=== PATIENT | female | born 1960 | race Caucasian/White ===

== ENCOUNTER 2018-02-25 11:27 | Outpatient (CLI) | payer MEDICARE, OTHER ==
--- NOTE | 2018-02-28 11:19 | Mammography Report ---
Reason: SCREEN w JESUSITA Procedure Date: 02/25/2018 Accession Number: [id number] / [id number] Procedure: CAROLYN - Screening Mammo w/Jesusita CPT Code: FULL RESULT: EXAM: Screening Mammo w/Jesusita DATE: 02/25/2018 12:24 PM CLINICAL HISTORY: 58-year-old female with history of early menses and late childbearing and family history of breast cancer in the mother at age 56. TECHNIQUE: Bilateral CC and MLO views were obtained. COMPARISON: 09/02/2015, 12/25/2013, 09/08/2012. FINDINGS: The breasts demonstrate scattered fibroglandular densities bilaterally. Coarse typically benign bilateral calcifications are seen. No suspicious masses, clustered microcalcifications, or regions of architectural distortion are identified. IMPRESSION: Benign findings RECOMMENDATION: Routine annual screening unless otherwise clinically indicated. BIRADS CATEGORY 2: Benign findings STANDARD QUALIFYING STATEMENTS: 1. This examination was not reviewed with the aid of Computer-Aided Detection (CAD). 2. A negative or benign imaging report should not delay biopsy if clinically suspicious findings are present. Consider surgical consultation if warrented. More than 5% of cancers are not identified by imaging. 3. Dense breasts may obscure an underlying neoplasm. 4. This examination was reviewed with the aid of 3D breast imaging (tomosynthesis).
== END 2018-02-25 11:28 | disposition home or self-care (01) ==
LOC: DI 11:27
PROVIDERS: ATTEND Registered Nurse
DX: Z12.31 Encounter for screening mammogram for malignant neoplasm of breast (principal); Z80.3 Family history of malignant neoplasm of breast
CPT/HCPCS: 77063; 77067

== ENCOUNTER 2018-07-22 14:02 | Outpatient (CLI) | payer MEDICARE, OTHER ==
--- NOTE | 2018-07-22 15:49 | XRAY Report ---
Reason: SACROCOCCYGEAL DISORDERS, NOT ELSEWHERE CLASSIFIED Procedure Date: 07/22/2018 Accession Number: [id number] / [id number] Procedure: XR - Sacrum/Coccyx CPT Code: FULL RESULT: EXAM: SACRUM AND COCCYX RADIOGRAPHY EXAM DATE: 07/22/2018 02:21 PM. HISTORY: Sacrococcygeal pain after ground-level fall yesterday. COMPARISONS: None. TECHNIQUE: 2 views. FINDINGS: Alignment: Normal. The sacrum and coccyx are normally aligned. Bones: Normal. No fracture or bone lesion. Joints: Normal. The sacroiliac joints and visualized hips are within normal limits. Soft Tissues: Unremarkable. IMPRESSION: Normal sacrum and coccyx radiography. RADIA
== END 2018-07-22 14:03 | disposition home or self-care (01) ==
LOC: DI 14:02
PROVIDERS: ATTEND Registered Nurse
DX: M53.3 Sacrococcygeal disorders, not elsewhere classified (principal)
CPT/HCPCS: 72220

== ENCOUNTER 2019-11-06 14:05 | Outpatient (CLI) | payer MEDICARE, OTHER ==
--- NOTE | 2019-11-07 11:49 | Mammography Report ---
BILATERAL DIGITAL SCREENING MAMMOGRAM 3D/2D: 11/06/2019 CLINICAL: Routine screening. Comparison is made to exams dated: 02/25/2018 mammogram, 09/02/2015 mammogram, and 12/25/2013 mammogram - [facility]. The tissue of both breasts is predominantly fatty. No significant masses, calcifications, or other findings are seen in either breast. There has been no significant interval change. IMPRESSION: NEGATIVE There is no mammographic evidence of malignancy. A 1 year screening mammogram is recommended. This exam was interpreted at Station ID: [id number]. NOTE: For mammograms, a report in lay terms will be sent to the patient. Approximately 15% of breast malignancies will not be visualized mammographically. In the management of a palpable breast mass, a negative mammogram must not discourage biopsy of a clinically suspicious lesion. Electronically Signed By: Solis Robert M.D., jr/lala:11/06/2019 16:30:16 ACR BI-RADS Category 1: Negative 3341F PARENCHYMAL PATTERN: (F) - The breast(s) demonstrate(s) diffuse fatty replacement. BI-RADS CATEGORY: (1) - 1 RECOMMENDATION: (ANNUAL) - Recommend routine annual screening mammography. [id number] 1 year screening LATERALITY: (B)
== END 2019-11-06 14:06 | disposition home or self-care (01) ==
LOC: DI 14:05
PROVIDERS: ATTEND Registered Nurse
DX: Z12.31 Encounter for screening mammogram for malignant neoplasm of breast (principal)
CPT/HCPCS: 77063; 77067

== ENCOUNTER 2020-01-03 17:13 | Outpatient (CLI) | payer MEDICARE, OTHER | END 2020-01-03 17:14 | disposition critical access hospital (66) | LOC: EMS 17:13 | PROVIDERS: ATTEND Surgery | DX: R42 Dizziness and giddiness (principal) | CPT/HCPCS: A0425; A0427 ==

== ENCOUNTER 2020-07-29 12:40 | Outpatient (CLI) | payer MEDICARE, OTHER | END 2020-07-29 12:41 | disposition home or self-care (01) | LOC: NS 12:40 | PROVIDERS: ATTEND Family Medicine | DX: Z71.3 Dietary counseling and surveillance (principal); E11.9 Type 2 diabetes mellitus without complications | CPT/HCPCS: 97802; 97803 ==

== ENCOUNTER 2020-10-17 09:54 | Outpatient (CLI) | payer MEDICARE, OTHER | END 2020-10-17 09:55 | disposition home or self-care (01) | LOC: NS 09:54 | PROVIDERS: ATTEND Registered Nurse | DX: Z71.3 Dietary counseling and surveillance (principal); E11.9 Type 2 diabetes mellitus without complications | CPT/HCPCS: 97803 ==

== ENCOUNTER 2020-11-10 12:45 | Outpatient (CLI) | payer MEDICARE, OTHER ==
--- NOTE | 2020-11-11 11:57 | Mammography Report ---
BILATERAL DIGITAL SCREENING MAMMOGRAM 3D/2D: 11/10/2020 CLINICAL: Family history of breast cancer. Comparison is made to exams dated: 11/06/2019 mammogram, 02/25/2018 mammogram, 09/02/2015 mammogram, 12/02 mammogram, and 09/08/2012 mammogram - [facility]. There are scattered fibrogl andular elements in both breasts. There are benign calcifications in the left breast. No significant masses, calcifications, or other findings are seen in either breast. There has been no significant interval change. IMPRESSION: BENIGN There is no mammographic evidence of malignancy. A 1 year screening mammogram is recommended. This exam was interpreted at Station ID: [id number]. NOTE: For mammograms, a report in lay terms will be sent to the patient. Approximately 15% of breast malignancies will not be visualized mammographically. In the management of a palpable breast mass, a negative mammogram must not discourage biopsy of a clinically suspicious lesion. Electronically Signed By: Rex Dale M.D. ddp/penrad:11/11/2020 09:29:51 ACR BI-RADS Category 2: Benign Finding(s) 3342F PARENCHYMAL PATTERN: (A) - The breast(s) demonstrate(s) scattered fibroglandular densities. BI-RADS CATEGORY: (2) - 2 RECOMMENDATION: (ANNUAL) - Recommend routine annual screening mammography. [id number] 1 year screening LATERALITY: (B)
== END 2020-11-10 12:46 | disposition home or self-care (01) ==
LOC: DI.S 12:45
PROVIDERS: ATTEND Registered Nurse
DX: Z12.31 Encounter for screening mammogram for malignant neoplasm of breast (principal); Z80.3 Family history of malignant neoplasm of breast

== ENCOUNTER 2020-11-21 07:44 | Outpatient (CLI) | payer MEDICARE, OTHER ==
[2020-11-21 20:48] LABS: ESTIMATED AVERAGE GLUCOSE 123 mg/dL (70-100); HEMOGLOBIN A1c% 5.9 % (4.27-6.07)
== END 2020-11-21 07:45 | disposition home or self-care (01) ==
LOC: LAB.S 07:44
PROVIDERS: ATTEND Registered Nurse
DX: E11.9 Type 2 diabetes mellitus without complications (principal)
CPT/HCPCS: 36415; 83036

== ENCOUNTER 2020-12-15 14:34 | Emergency (ER) | payer MEDICARE, OTHER ==
[2020-12-15] MEDS ORDERED: KETOROLAC 60 MG/2 ML VIAL IM STA (15:24)
--- NOTE | 2020-12-15 15:47 | XRAY Report ---
PROCEDURE: Humerus LT INDICATIONS: fall mid shaft TECHNIQUE: 2 views of the humerus were acquired. COMPARISON: None FINDINGS: Bones: There is a moderately displaced fracture through the midshaft of the left humerus, with commin uted line seen proximally. Postoperative changes are seen, with left humeral head anchors. Underlying age-appropriate degenerative changes can be seen. On these images, no sherman rib fractures can be seen. Soft tissues: No suspicious soft tissue calcifications. IMPRESSION: Comminuted fracture of the left humeral mid shaft. Reviewed by: Yung Rodriguez MD on 12/15/2020 2:45 PM [facility] Approved by: Yung Rodriguez MD on 12/15/2020 2:45 PM [facility]AS Station ID: [id number]
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
[2020-12-15 16:41] VITALS: BP 117/73
== END 2020-12-15 16:41 | disposition home or self-care (01) ==
LOC: ED 14:34
DX: S42.352A Displaced comminuted fracture of shaft of humerus, left arm, initial encounter for closed fracture (principal); W18.30XA Fall on same level, unspecified, initial encounter; Y93.55 Activity, bike riding; Y92.830 Public park as the place of occurrence of the external cause; Z87.891 Personal history of nicotine dependence; E11.9 Type 2 diabetes mellitus without complications; Z79.84 Long term (current) use of oral hypoglycemic drugs
CPT/HCPCS: 29105; 99284

== ENCOUNTER 2020-12-26 08:00 | Outpatient (CLI) | payer MEDICARE, OTHER ==
--- NOTE | 2020-12-27 11:41 | XRAY Report ---
PROCEDURE: Humerus LT INDICATIONS: DISPLACED OBLIQUE FX OF SHAFT OF L HUMERUS TECHNIQUE: 3 views of the humerus were acquired. COMPARISON: 12/15/2020 plain film imaging FINDINGS: Bones: No previously unidentified fractures or dislocations. No suspicious bony lesions. Soft tissues: No suspicious soft tissue calcifications. IMPRESSION: No definite osseous union across the fracture planes is yet established. No significant change in mil d malalignment at the fracture. Tendon transfer yohana again noted at the humeral head area. These d o not appear dislodged. Presumably healing. Reviewed by: West Peterson MD on 12/27/2020 11:40 AM PDT Approved by: West Peterson MD on 12/27/2020 11:40 AM PDT Station ID: [id number]
== END 2020-12-26 23:59 | disposition home or self-care (01) ==
LOC: DI.N 08:00
PROVIDERS: ATTEND Orthopaedic Surgery
DX: S42.332D Displaced oblique fracture of shaft of humerus, left arm, subsequent encounter for fracture with routine healing (principal)

== ENCOUNTER 2021-01-28 13:30 | Outpatient (CLI) | payer MEDICARE, OTHER ==
--- NOTE | 2021-01-28 18:52 | XRAY Report ---
PROCEDURE: Humerus LT INDICATIONS: DISPLACED OBLIQUE FX OF SHAFT OF L HUMERUS TECHNIQUE: 2 views of the humerus were acquired. COMPARISON: 12/26/2020, 12/15/2020. FINDINGS: Bones: There is interval further healing at proximal to mid humeral shaft fracture site with surround ing callus formation. Humeral alignment is near anatomic. No new fracture or dislocation. No suspicio us bony lesions. Soft tissues: No suspicious soft tissue calcifications. IMPRESSION: Interval further healing at left humeral shaft fracture site with stable and near-anatomic humeral al ignment. Reviewed by: Wesly Ponce MD on 01/28/2021 6:51 PM PDT Approved by: Wesly Ponce MD on 01/28/2021 6:51 PM PDT Station ID: [id number]
== END 2021-01-28 23:59 | disposition home or self-care (01) ==
LOC: DI.N 13:30
PROVIDERS: ATTEND Orthopaedic Surgery
DX: S42.332D Displaced oblique fracture of shaft of humerus, left arm, subsequent encounter for fracture with routine healing (principal)

== ENCOUNTER 2021-03-11 07:33 | Outpatient (CLI) | payer MEDICARE, OTHER ==
--- NOTE | 2021-03-12 10:56 | XRAY Report ---
PROCEDURE: Humerus LT INDICATIONS: DISPLACED OBLIQUE FX OF SHAFT OF L HUMERUS TECHNIQUE: 2 views of the humerus were acquired. COMPARISON: X-ray humerus 01/28/2021 FINDINGS: Bones: There is stable alignment with continued interval bridging sclerosis consistent with healing. Fracture lucencies remain present within the mid humerus. No suspicious bony lesions. Soft tissues: No suspicious soft tissue calcifications. IMPRESSION: Continued interval healing with stable alignment of mid humeral fracture. Reviewed by: Kat Jacobson MD on 03/12/2021 10:55 AM [facility] Approved by: Kat Jacobson MD on 03/12/2021 10:55 AM [facility] Station ID: [id number]
== END 2021-03-11 23:59 | disposition home or self-care (01) ==
LOC: DI.N 07:33
PROVIDERS: ATTEND Orthopaedic Surgery
DX: S42.332D Displaced oblique fracture of shaft of humerus, left arm, subsequent encounter for fracture with routine healing (principal)

== ENCOUNTER 2021-03-11 11:01 | Outpatient (CLI) | payer MEDICARE, OTHER | END 2021-03-11 11:02 | disposition home or self-care (01) | LOC: DI.N 11:01 | PROVIDERS: ATTEND Orthopaedic Surgery | DX: Z53.9 Procedure and treatment not carried out, unspecified reason (principal) ==

== ENCOUNTER 2021-09-11 07:58 | Outpatient (CLI) | payer MEDICARE, OTHER ==
[2021-09-11 14:37] LABS: ESTIMATED AVERAGE GLUCOSE 128 mg/dL (70-100); HEMOGLOBIN A1c% 6.1 % (4.27-6.07)
== END 2021-09-11 07:59 | disposition home or self-care (01) ==
LOC: LAB.S 07:58
PROVIDERS: ATTEND Registered Nurse
DX: E11.9 Type 2 diabetes mellitus without complications (principal)
CPT/HCPCS: 36415; 83036

== ENCOUNTER 2021-12-02 07:46 | Outpatient (CLI) | payer MEDICARE, OTHER ==
--- NOTE | 2021-12-03 09:51 | Mammography Report ---
BILATERAL DIGITAL SCREENING MAMMOGRAM 3D/2D: 12/02/2021 CLINICAL: Routine screening. Family history of breast cancer. Comparison is made to exams dated: 11/10/2020 mammogram, 11/06/2019 mammogram, 11/06/2019 mammogram, and 02/25/2018 mammogram - [facility]. The tissue of both breasts is predominantly fat ty. There are benign calcifications in the left breast. No significant masses, calcifications, or other findings are seen in either breast. There has been no significant interval change. IMPRESSION: BENIGN There is no mammographic evidence of malignancy. A 1 year screening mammogram is recommended. Based on the Tyrer Cuzick model (a risk assessment model) the patients lifetime risk is 10.0% and he r 10 year risk is 4.4%. According to the ACR, ACS, and NCCN guidelines, an annual breast MRI exam nazanin ng with mammogram is recommended if the patients lifetime risk is 20% or greater. This exam was interpreted at Station ID: [id number]. NOTE: For mammograms, a report in lay terms will be sent to the patient. Approximately 15% of breast malignancies will not be visualized mammographically. In the management of a palpable breast mass, a negative mammogram must not discourage biopsy of a clinically suspicious lesion. Electronically Signed By: Linda lara/lala:12/02/2021 13:18:56 ACR BI-RADS Category 2: Benign Finding(s) 3342F PARENCHYMAL PATTERN: (F) - The breast(s) demonstrate(s) diffuse fatty replacement. BI-RADS CATEGORY: (2) - 2 RECOMMENDATION: (ANNUAL) - Recommend routine annual screening mammography. [id number] 1 year screening LATERALITY: (B)
== END 2021-12-02 07:47 | disposition home or self-care (01) ==
LOC: DI.S 07:46
PROVIDERS: ATTEND Registered Nurse
DX: Z12.31 Encounter for screening mammogram for malignant neoplasm of breast (principal); Z80.3 Family history of malignant neoplasm of breast

== ENCOUNTER 2023-04-06 07:50 | Outpatient (CLI) | payer MEDICARE, OTHER ==
--- NOTE | 2023-04-07 09:38 | Mammography Report ---
BILATERAL DIGITAL SCREENING MAMMOGRAM 3D/2D: 04/06/2023 CLINICAL: Routine screening. Family history of breast cancer. Comparison is made to exams dated: 12/02/2021 mammogram, 11/10/2020 mammogram, and 11/06/2019 mammogram - [facility]. There are scattered areas of fibroglandular density in both breasts (category b / 25%-50% glandular t issue). There are benign calcifications in the left breast. No significant masses, calcifications, or other findings are seen in either breast. There has been no significant interval change. IMPRESSION: BENIGN There is no mammographic evidence of malignancy. A 1 year screening mammogram is recommended. Based on the Tyrer Cuzick model (a risk assessment model) the patients lifetime risk is 14.0% and he r 10 year risk is 6.6%. According to the ACR, ACS, and NCCN guidelines, an annual breast MRI exam nazanin ng with mammogram is recommended if the patients lifetime risk is 20% or greater. This exam was interpreted at Station ID: [id number]. NOTE: For mammograms, a report in lay terms will be sent to the patient. Approximately 15% of breast malignancies will not be visualized mammographically. In the management of a palpable breast mass, a negative mammogram must not discourage biopsy of a clinically suspicious lesion. Electronically Signed By: Mayelin franco/lala:04/06/2023 14:52:59 letter sent: No_Letter ACR BI-RADS Category 2: Benign Finding(s) 3342F PARENCHYMAL PATTERN: (A) - The breast(s) demonstrate(s) scattered fibroglandular densities. BI-RADS CATEGORY: (2) - 2 Mammogram [id number] 1 year screening LATERALITY: (B)
== END 2023-04-06 07:51 | disposition home or self-care (01) ==
LOC: DI.S 07:50
PROVIDERS: ATTEND Registered Nurse
DX: Z12.31 Encounter for screening mammogram for malignant neoplasm of breast (principal); Z80.3 Family history of malignant neoplasm of breast; R92.323 Mammographic fibroglandular density, bilateral breasts

== ENCOUNTER 2023-11-03 08:21 | Outpatient (CLI) | payer MEDICARE, OTHER ==
--- NOTE | 2023-11-03 23:22 | XRAY Report ---
PROCEDURE: Hip w/Pelvis 2-3V LT INDICATIONS: LUMBAR DDD TECHNIQUE: 2 views of the hip were acquired. COMPARISON: None. FINDINGS: Bones: No fractures or dislocations. Moderate bilateral hip joint osteoarthritic changes are seen. No evidence of avascular necrosis of femoral head. Degenerative disc disease in visualized lower lumb ar spine is seen. No suspicious bony lesions. Soft tissues: No suspicious soft tissue calcifications or masses. IMPRESSION: No acute pelvic or hip fracture. Moderate bilateral hip joint osteoarthritis. No evidence of avascula r necrosis of femoral head. Degenerative disc disease in visualized lower lumbar spine. Reviewed by: Wesly Russell MD on 11/03/2023 11:21 PM PDT Approved by: Wesly Russell MD on 11/03/2023 11:21 PM PDT Station ID: [id number]
== END 2023-11-03 08:22 | disposition home or self-care (01) ==
LOC: DI.S 08:21
PROVIDERS: ATTEND Nurse Practitioner Family
DX: M16.0 Bilateral primary osteoarthritis of hip (principal); M51.36 Other intervertebral disc degeneration, lumbar region